=== PATIENT | female | born 1980 | race Caucasian/White ===

== ENCOUNTER 2019-10-08 15:30 | Outpatient (CLI) | payer SELFPAY ==
--- NOTE | ~2019-10-08 | MR_ITS ---
EXAMINATION: MR lumbar spine wo con DATE: 10/08/2019 16:46 INDICATION: Pain in unspecified hip. TECHNIQUE: Magnetic resonance imaging (MRI) of the lumbar spine was performed without intravenous con trast. Sequences included sagittal T2-weighted FSE, sagittal T2-weighted FS FSE, sagittal T1-weighted FSE, and axial T2-weighted FSE. COMPARISON: None FINDINGS: There is 9 degrees levocurvature of lumbar spine. There are Schmorl's nodes at T11-T12, T12 -L1, and L1-L2. There is mildly decreased disc height at L3-L4 and L4-L5. The distal spinal cord sign al intensity is normal. The conus medullaris is at L1. The following disc levels are specifically dis cussed: L1-L2: The disc does not extend beyond the endplate margin. There is no facet joint osteoarthritis. T here is no neural foraminal stenosis. There is no central canal stenosis. L2-L3: The disc does not extend beyond the endplate margin. There is mild bilateral facet joint osteo arthritis. There is no neural foraminal stenosis. There is no central canal stenosis. L3-L4: There is a left foraminal protrusion. There is mild bilateral facet joint osteoarthritis. Ther e is mild left neural foraminal stenosis. There is no central canal stenosis. L4-L5: The disc is bulging and has an annular fissure. There is moderate bilateral facet joint osteoa rthritis. There is mild bilateral neural foraminal stenosis. There is no central canal stenosis. L5-S1: The disc does not extend beyond the endplate margin. There is severe bilateral facet joint ost eoarthritis. There is no neural foraminal stenosis. There is no central canal stenosis. IMPRESSION: 1. Mild lumbar spondylosis. Reviewed, dictated and finalized at location A. IMPRESSION: 1. Mild lumbar spondylosis.
--- NOTE | ~2019-10-08 | MR_ITS ---
EXAMINATION: MR hip RT wo con DATE: 10/08/2019 16:57 INDICATION: Right hip pain. TECHNIQUE: Magnetic resonance imaging (MRI) of the right hip was performed without intravenous contr ast. Sequences included full-field axial PD-weighted FS FSE and T1-weighted FSE, coronal of the pelvi s with PD-weighted FS FSE, small field of view of the affected hip with axial PD-weighted FS FSE, sa gittal PD-weighted FS FSE and coronal PD weighted FS FSE. Additional radial T1-weighted FGR oriented orthogonal to the acetabular rim were obtained for evaluation of the labrum. COMPARISON: None FINDINGS: Bones/labrum/cartilage: Alignment is normal. There is an abnormal contour to the right anterior iliac spine with heterotopic ossification extending caudally along the right sartorius and rectus femoris muscle origins likely re presenting sequela of chronic avulsion injuries. No acute fracture, avascular necrosis or pathologic marrow replacing process. There is decreased right femoral head neck offset with hypertrophic bump at the anterosuperior head neck junction which may be related to cam-type femoral acetabular impingemen t. The right acetabular labrum appears diminutive, partially replaced by marginal osteophyte along th e rim of the right acetabulum but without a discrete labral tear. There is mild nonuniform joint spac e narrowing with partial thickness cartilage loss at the posterior superior margin of the joint space . No focal cartilage lesions identified. Fluid: Symmetric physiologic amount of fluid within both hip joints. Soft tissues: There is small amount of fluid along the inferior margin of the heterotopic ossification arising from the lateral supra-acetabular region at the site of insertion of the reflected head of the right rect us femoris muscle. The fluid appears to communicate with the glenohumeral joint space through a tiny defect in the capsule along the lateral margin of the iliopsoas muscle most likely representing small amount of iliopsoas bursitis potentially related to impingement with the osseous excrescence. Normal and symmetric muscle bulk and signal in the pelvis and visualized proximal thighs. The iliopsoas, gl uteal and proximal hamstring tendons are normal. Limited evaluation of visceral organs of the pelvis is unremarkable. No pathologically enlarged pelvic/inguinal lymphadenopathy. IMPRESSION: 1. Small amount of fluid likely related to bursitis which may relate to impingement between the later al margin of the iliopsoas muscle and a prominent heterotopic osteophyte extending anteriorly from th e superolateral margin of the right acetabulum. 2. Mild right hip osteoarthritis with osteophyte formation extending to a likely chronically degenera jacqueline right acetabular labrum which may be related to chronic cam-type femoral acetabular impingement g iven the presence of a likely impingement bump at the anterosuperior femoral head neck junction. Reviewed, dictated and finalized at location B. IMPRESSION: 1. Small amount of fluid likely related to bursitis which may relate to impinge ment between the lateral margin of the iliopsoas muscle and a prominent heterot opic osteophyte extending anteriorly from the superolateral margin of the right acetabulum. 2. Mild right hip osteoarthritis with osteophyte formation extending to a likel y chronically degenerated right acetabular labrum which may be related to chron ic cam-type femoral acetabular impingement given the presence of a likely impin gement bump at the anterosuperior femoral head neck junction.
== END 2019-10-08 15:31 | disposition home or self-care (01) ==
PROVIDERS: PCP Family Medicine; Visit Provider Orthopaedic Surgery
DX: M25.559 Pain in unspecified hip (principal); M16.11 Unilateral primary osteoarthritis, right hip; R93.6 Abnormal findings on diagnostic imaging of limbs; M47.816 Spondylosis without myelopathy or radiculopathy, lumbar region
CPT/HCPCS: 72148; 73721

== ENCOUNTER 2019-10-31 13:00 | Outpatient (CLI) | payer OTHER, SELFPAY ==
--- NOTE | ~2019-10-31 | XR_ITS ---
. EXAMINATION: XR lg joint inject/asp w image DATE: 10/31/2019 13:44 INDICATION: Right hip arthritis. TECHNIQUE: A time-out was performed to verify the patient's name, date of , and procedure to b e performed. The procedure including the risks, benefits, and alternatives was discussed with the pat ient. Risks discussed included bleeding and infection. The patient understood the risks and agreed to proceed. The skin overlying the right hip joint was prepped and draped in usual sterile fashion. A nesthetic was administered with 1% lidocaine subcutaneously. A 22 G needle was advanced under fluoro scopic guidance into the joint. Injection of 1 mL of Omnipaque 240 confirmed intra-articular positio n of the needle. Subsequently, injectate consisting of 2 mL 0.5% lidocaine and 1 mL 80 mg/mL Depo-Me drol was instilled. The needle was removed and the entry site was cleaned and dressed. There were n o immediate complications. Fluoroscopy exposure time was 0.0 minutes. The total number of images was 2. FINDINGS: Real-time fluoroscopy demonstrates the needle in the right hip joint. Patient's pain prior to procedure:5/10. Patient's pain following the procedure: 5/10. IMPRESSION: 1. Right hip joint injection of local anesthetic and steroid . Reviewed, dictated and finalized at location A.
== END 2019-10-31 13:01 | disposition home or self-care (01) ==
PROVIDERS: PCP Family Medicine; Visit Provider Orthopaedic Surgery
DX: M16.11 Unilateral primary osteoarthritis, right hip (principal)
CPT/HCPCS: 20610; 77002; J1040; Q9966

== ENCOUNTER 2020-04-08 20:33 | Emergency (ER) | payer OTHER, SELFPAY ==
--- NOTE | ~2020-04-08 | CT_ITS ---
EXAMINATION: CT abdomen pelvis wo con DATE: 04/08/2020 21:34 INDICATION: Left lower quadrant and left flank pain TECHNIQUE: Computed tomography (CT) of the abdomen and pelvis was performed without intravenous contr ast. The dose-length product (DLP) was 254.30 mGy-cm. Automated exposure control and iterative recons truction technique were employed. COMPARISON: 08/27/2012 FINDINGS: The lung bases are clear. The heart size is normal. The liver, spleen, pancreas, gallbladde r, and adrenal glands are normal. The kidneys are unremarkable. No stones are identified in the kidne ys, ureters, or bladder. There is no hydronephrosis or hydroureter. There is mild inflammatory change adjacent to the distal aspect of the descending colon. No pathologically enlarged abdominal or pelvi c lymph nodes are identified. There is no free intraperitoneal gas or evidence of bowel obstruction. There is a 3.8 cm cyst of the right adnexa. The appendix is normal. A fat-containing umbilical hernia is noted. IMPRESSION: 1. Inflammatory change adjacent to the distal aspect of the descending colon which could reflect dive rticulitis or possibly focal colitis. Reviewed, dictated and finalized at location A. [employer] TECHNICIAN IMPRESSION: 1. Inflammatory change adjacent to the distal aspect of the descending colon wh ich could reflect diverticulitis or possibly focal colitis.
[2020-04-08 20:40] VITALS: BP 138/90; PULSE 86; RESP 18; TEMP 36.4; O2SAT 99
--- NOTE | 2020-04-08 20:56 | ECG_ITS ---
Measurements Intervals [place] Rate: 78 P: 34 WA: 165 QRS: -30 QRSD: 101 T: 24 QT: 379 QTc: 434 Interpretive Statements SINUS RHYTHM LOW QRS VOLTAGE IN PRECORDIAL LEADS INCOMPLETE RIGHT BUNDLE BRANCH BLOCK VOLTAGE CRITERIA FOR LVH BORDERLINE R WAVE PROGRESSION, ANTERIOR LEADS BASELINE ARTIFACT- II, III, AVF, V5-V6 BORDERLINE ECG Electronically Signed On 04-09-2020 7:02:33 [employer] MANAGER by Wilder Ellison D.O.
[2020-04-08 21:15] LABS: Basophils Percent Auto 0.3 % (0.0-1.0); Eosinophils Absolute Auto 0.11 K/mm3 (0.02-0.50); Eosinophils Percent Auto 1.7 % (1.0-6.0); Hemoglobin 12.8 g/dL (12.0-15.0); Immature Granulocyte Absolute 0.02 K/mm3 (0.00-0.00); Immature Granulocyte Percent A 0.3 % (0.0-0.0); Lymphocytes Absolute Auto 2.17 K/mm3 (1.10-4.50); Lymphocytes Percent Auto 32.7 % (18.0-42.0); Mean Corpuscular HGB Conc 34.6 g/dL (32.0-36.0); Mean Corpuscular Hemoglobin 31.8 pg (27.0-31.0); Mean Platelet Volume 9.2 fl (9.2-11.8); Monocytes Absolute Auto 0.55 K/mm3 (0.10-0.90); Monocytes Percent Auto 8.3 % (2.0-11.0); Neutrophils Absolute Auto 3.8 K/mm3 (1.7-7.2); Neutrophils Percent Auto 56.7 % (50.0-70.0); Platelet Count Result 281 K/mm3 (150-420); Red Blood Count 4.02 M/mm3 (4.20-5.40); Red Cell Distribution Width 12.5 % (11.6-14.4); White Blood Count 6.6 K/mm3 (4.8-10.8)
[2020-04-08] MEDS: KETOROLAC 30 MG/ML VIAL (*BKC) IV PUSH (21:15)
[2020-04-08] MEDS: SODIUM CHLORIDE 0.9% IV 1,000 ML 999 ML IV CONT (21:15)
[2020-04-08 21:16] LABS: Add Urine Microscopic? NO; Appearance Urine Clear (Clear); Bilirubin Urine Negative (Negative); Blood Urine Negative (Negative); Color Urine Yellow (Yellow); Glucose Urine UA Negative (Negative); Ketones Urine Negative (Negative); Leukocyte Esterase Ur Negative LEU/UL (Negative); Nitrate Urine Negative (Negative); Protein Urine Negative (Negative); Specific Grav Ur 1.025 (1.010-1.020); Urobilinogen Urine 0.2 mg/dL (0.2-1.0); pH Urine 6.5 (5.0-8.0)
[2020-04-08 21:19] LABS: Basophils Absolute Auto 0.02 K/mm3 (0.00-0.10)
[2020-04-08 21:20] LABS: Pregnancy On Board Control Positive; Urine Pregnancy Test Negative
[2020-04-08 21:33] LABS: Lactic Acid Reflex 0.8 mmol/L (0.4-2.0)
[2020-04-08 21:40] LABS: Alanine Aminotransferase 29 U/L (14-59); Albumin Level 3.7 g/dL (3.4-5.0); Alkaline Phosphatase 69 U/L (46-116); Anion Gap 8 mmol/L (8-16); Aspartate Amino Transferase 33 U/L (15-37); Bilirubin,Total 0.4 mg/dL (0.00-1.00); Blood Urea Nitrogen 8 mg/dL (7-18); Calcium 8.6 mg/dL (8.5-10.1); Carbon Dioxide 27 mmol/L (21-32); Chloride 102 mmol/L (98-108); Estimated CRCL calculation 113 ml/min; Estimated Glomerular Filt Rate > 60; Glucose 91 mg/dL (70-99); Lipase 67 U/L (73-393); Osmolality Calculated 282 mOsm/kg (285-295); Potassium 3.6 mmol/L (3.5-5.1); Sodium 137 mmol/L (136-145); Total Protein 7.2 g/dL (6.4-8.2)
--- NOTE | 2020-04-08 22:11 | ED.ABDPAIN ---
HPI - Abdominal Pain General Chief Complaint: Abdominal Pain Stated Complaint: pain in abd/lower back Source: patient Mode of arrival: ambulatory Limitations: no limitations History of Present Illness HPI narrative: This is 39-year-old female presents with left lower quadrant abdominal pain over the last couple weeks getting worse radiating to her flank area with currently no nausea vomiting no fever chills no diarrhea or constipation. MD elicited complaint: abdominal pain Pertinent past history: none Onset (ago): day(s) Pain Consistency: intermittent Location: LLQ Severity: mild Pain scale (0-10): 4 Quality: aching Related Data Home Medications Medication Instructions Recorded Confirmed spironolactone 100 mg PO DAILY 04/08/20 04/08/20 Allergies Allergy/AdvReac Type Severity Reaction Status Date / Time No Known Allergies Allergy Verified 10/16/19 15:27 Review of Systems Review of Systems: All systems reviewed & are unremarkable except as noted in HPI and below PMFSH Past Medical History Medical History (Updated 04/08/20 @ 22:17 by Mc Contreras MD) Dizziness Hypertension Hypothyroidism Rheumatoid arthritis Seasonal allergies Surgical History Surgical History History of hip surgery Family History Family History Other Arthritis Hypertension Social History Social History Smoking status: Former smoker Alcohol intake: current Exam Const: General: no acute distress Orientation/consciousness: patient oriented x3 HENMT: Head: normal to inspection Eyes: Conjunctivae: conjunctivae normal Pupils: Equal, round and reactive pupils present EOM: EOMs intact bilaterally Direct Ophthalmoscopy: no photophobia Neck: Neck: normal visual inspection, no lymphadenopathy and no meningeal signs Chest: Chest palpation & inspection: normal inspection of the chest Resp: Effort & Inspection: normal respiratory effort Auscultation: clear to auscultation bilaterally Cardio: Rate: regular rate Rhythm: regular rhythm GI: GI Palp: Yes Tenderness to palpation present (GI) ( Left lower quadrant) : General: Yes no CVA tenderness Extrem: General: normal to inspection Psych: Appearance: grossly normal Mental Status: mental status grossly normal Course Course Emergency Course: patient given IM Toradol and IV fluids and reviewed the CT scan and blood work which showed a colitis in the colon on CT scan will give her dose of Cipro and Flagyl and will discharge with some of those antibiotics and follow-up with her primary care doctor Vital Signs Vital signs: Vital Signs Temperature 36.4 C 04/08/20 20:40 Pulse Rate 86 04/08/20 20:40 Respiratory Rate 18 04/08/20 20:40 Blood Pressure 138/90 04/08/20 20:40 Pulse Oximetry 99 04/08/20 20:40 Temperature 36.4 C 04/08/20 20:40 Pulse Rate 86 04/08/20 20:40 Respiratory Rate 18 04/08/20 20:40 Blood Pressure 138/90 04/08/20 20:40 Pulse Oximetry 99 04/08/20 20:40 MDM - Abdominal Pain Lab Data Result diagrams: 04/08/20 21:07 04/08/20 21:07 Labs: Lab Results 04/08/20 04/08/20 04/08/20 Range/Units 21:03 21:07 21:07 WBC 6.6 (4.8-10.8) K/mm3 RBC 4.02 L (4.20-5.40) M/mm3 Hgb 12.8 (12.0-15.0) g/dL Hct 37.0 (35.0-49.0) % MCV 92.0 (78.0-102.0) fL MCH 31.8 H (27.0-31.0) pg MCHC 34.6 (32.0-36.0) g/dL RDW 12.5 (11.6-14.4) % Plt Count 281 (150-420) K/mm3 MPV 9.2 (9.2-11.8) fl Immature Gran % (Auto) 0.3 H (0.0-0.0) % Neut % (Auto) 56.7 (50.0-70.0) % Lymph % (Auto) 32.7 (18.0-42.0) % [place] % (Auto) 8.3 (2.0-11.0) % Eos % (Auto) 1.7 (1.0-6.0) % Baso % (Auto) 0.3 (0.0-1.0) % Lymph # (Auto) 2.17 (1.10-4.50) K/mm3 [place] # (Auto) 0.55 (0.10-0
[2020-04-08] MEDS: metroNIDAZOLE 250 MG TABLET 500 MG PO (22:15)
[2020-04-08] MEDS: CIPROFLOXACIN 500 MG TAB PO (22:15)
[2020-04-08 22:20] VITALS: BP 130/78; PULSE 80; RESP 18; TEMP 36.2; O2SAT 98
== END 2020-04-08 22:25 | disposition home or self-care (01) ==
PROVIDERS: Emergency Provider Emergency Medicine; PCP Family Medicine
DX: K52.9 Noninfective gastroenteritis and colitis, unspecified (principal)
CPT/HCPCS: 36415; 74176; 80053; 81003; 81025; 83605; 83690; 85025; 93005; 96361; 96374; 99283; 99284; A9270; J1885; J7030